=== PATIENT | male | born 1990 | race Caucasian/White ===

== ENCOUNTER 2017-12-08 20:55 | Emergency (ER) | payer OTHER, SELFPAY ==
[2017-12-08 20:55] VITALS: BP 131/79; PULSE 74; RESP 17; TEMP 36.7; O2SAT 98; BMI 22.1
--- NOTE | 2017-12-08 21:10 | NURSING ---
CALLED DEREJE FROM [facility], SHE WILL BE IN TO DRUG TEST
--- NOTE | 2017-12-08 21:40 | RAD_ITS ---
STUDY: X-RAY - LEFT HAND REASON FOR EXAM: Male, 27 years old. Trauma. TECHNIQUE: 3 view(s) of the hand. COMPARISON: None. FINDINGS: Normal radiocarpal articulation. Normal distal radioulnar joint. Normal visualized carpal bones. Normal carpal articulations Normal carpometacarpal articulation of the thumb. Normal second through fifth carpometacarpal joints. Normal metacarpi. Normal metacarpophalangeal joint of the thumb. Normal interphalangeal joint of the thumb. Normal proximal and distal phalanges of the thumb. Normal metacarpophalangeal joints of the second through fifth fingers. Normal proximal and distal interphalangeal joints of the second through fifth fingers. Normal phalanges of the second through fifth fingers. The soft tissue structures are unremarkable. RAD/Hand Min 3 Views IMPRESSION: Normal x-ray examination of the hand. Electronically Signed: Parag Browne MD at 22:07 EST , Service support ,
[2017-12-08] MEDS: Naproxen 500 MG Tablet PO (22:04)
--- NOTE | 2017-12-08 22:26 | ED.DCSUM_ITS ---
- ER Visit Summary Date of Service: 12/08/17 Chief Complaint: Left hand injury History of Present Illness: The patient is a 27 M he was at work tonight when he states his left fifth finger was smashed between a 300 pound roll and the floor. He is not wearing gloves at the time. He is right-hand dominant. Physical Examination: Vital signs are unremarkable. Left upper extremity examination reveals tenderness of the distal aspect of the left fifth finger. There is a small amount of dried blood along the ulnar surface of the nail. There is no subungual hematoma. The nail itself is stable and intact. Patient has good range of motion, sensation, and cap refill. Test Results: Left hand x-rays were obtained per nursing protocol. There is no evidence of acute fracture. Emergency Department Course and Treatment: Patient was given Naprosyn for pain. Finger placed in AlumaFoam splint help protect it from further injury. Treatment Plan: [] Disposition: Discharge Impression: Crush injury left fifth finger This note was generated with [employer] dictation software. It may contain incorrect words, spelling, and punctuation that were not noted in review of the chart prior to signing ED Disposition - Plan for ED Patient: Disposition: Home or Assisted Living Chief Complaint: Upper Extremity Injury Instructions: ED Crush Injury Finger No Fx Referrals: [facility] [GROUP OF PHYSICIANS] - 3-5 Days
[2017-12-08 22:59] VITALS: BP 125/78; PULSE 75; RESP 14; O2SAT 99
== END 2017-12-08 22:59 | disposition home or self-care (01) ==
PROVIDERS: Emergency Provider Emergency Medicine
DX: S67.197A Crushing injury of left little finger, initial encounter (principal); W23.1XXA Caught, crushed, jammed, or pinched between stationary objects, initial encounter; Y93.9 Activity, unspecified; Y92.9 Unspecified place or not applicable; Y99.0 Civilian activity done for income or pay; Z72.0 Tobacco use
CPT/HCPCS: 73130; 99284

== ENCOUNTER 2018-01-07 18:33 | Emergency (ER) | payer BC, SELFPAY ==
[2018-01-07 18:33] VITALS: BP 153/93; PULSE 90; RESP 16; TEMP 36.6; O2SAT 98; BMI 21.4
[2018-01-07 19:09] VITALS: BP 148/96; PULSE 80; RESP 14; O2SAT 99
--- NOTE | 2018-01-07 19:41 | CT_ITS ---
STUDY: CTA CHEST REASON FOR EXAM: Male, 27 years old. Hemoptysis, left rib pain and dyspnea RADIATION DOSAGE (If Supplied By Facility): CTDIvol = ( 10.76 ) mGy, DLP = ( 321.82 ) mGycm TECHNIQUE: The examination was performed with the intravenous administration of 75ML ml of Isovue 370 contrast material. Post-processing of the angiographic images was performed, with multiplanar reformation and 3D reconstruction. Individualized dose optimization techniques were used for this CT. COMPARISON: None. FINDINGS: Normal enhancement of the main pulmonary artery and right and left pulmonary arteries. Normal enhancement of the bilateral peripheral pulmonary arteries. There is no demonstrated pulmonary embolism. Normal thoracic aorta and visualized great vessels. There is no demonstrated aortic dissection. Normal heart and pericardium. Normal mediastinum. Normal hilar regions. Normal visualized trachea and bronchi. The lungs are well expanded. Normal pulmonary parenchyma. Normal pleura. Normal chest wall structures. Normal osseous structures. Normal visualized upper abdomen. CT/CTA Chest W/WO Contrast IMPRESSION: Normal CTA chest examination, without a demonstrated pulmonary embolism or arterial dissection. Electronically Signed: Dony Farrell MD at 21:00 EDT , Service support ,
[2018-01-07 20:01] LABS: Absolute Lymphocyte Count 2.09 X10^3/ul (0.83-4.51); Absolute Neutrophil Count 4.5 X10^3/uL (2.0-7.7); Basophil# 0.02 X10^3/uL; Basophil% 0.3 % (0-1); Eosinophil# 0.14 X10^3/uL; Eosinophils% 1.9 % (0-5); Hemoglobin 16.3 g/dl (13.0-16.5); Lymphocyte # 2.09 X10^3/ul (4.0); Lymphocyte % 28.2 % (19-41); Mean Corpuscular Hgb 28.3 pg (27.0-32.0); Mean Corpuscular Volume 83.3 fL (80-94); Mean Platelet Vol. 10.5 fl (6.2-12.0); Monocyte# 0.63 X10^3/uL; Monocyte% 8.5 % (0-10); Neutrophil # 4.51 X10^3/uL (2.7-7.7); Neutrophil % 60.8 % (47-70); Platelet Count 236 K/mm3 (150-450); RBC Distribution Width CV 13.3 % (11.6-14.6); RBC Distribution Width SD 39.8 fl (35.1-43.9); Red Blood Count 5.76 M/mm3 (4.6-6.2); White Blood Count 7.4 K/mm3 (4.4-11.0)
[2018-01-07 20:12] LABS: POSITIVE COUNT NO; POSITIVE DIFFERENTIAL NO; POSITIVE MORPHOLOGY NO
[2018-01-07 20:13] LABS: Anion Gap 6 (5-15); BUN 6 mg/dL (7-18); BUN/Creat Ratio 6.1 RATIO (10-20); Chloride 108 mmol/L (98-107); Creatinine, Serum 0.98 mg/dL (0.70-1.30); EST Glomerular Filtration Rate 98 mL/min (>60); Est Glom Filt Rate - Afr Amer 118 mL/min (>60); Estimated Creatinine Clearance 106.63 ml/min; Glucose 89 mg/dL (74-106); Potassium 4.4 mmol/L (3.5-5.1); Sodium Level 142 mmol/L (136-145)
--- NOTE | 2018-01-07 21:30 | ED.VISSUMM ---
- ER Visit Summary Date of Service: 01/07/18 Chief Complaint: Coughing up blood History of Present Illness: The patient is a 27 M presenting for evaluation secondary to hemoptysis. Patient states that over the last 2 days he has been intermittently coughing up blood. States that he has had a cough and a mild sore throat denies any runny nose nosebleeds nausea or vomiting or any bloody emesis. Patient states that it has happen a couple of times one time it was enough to actually fill his mouth with blood. Patient is a smoker. He also endorses that potentially has been having some left leg swelling recently. Denies any history DVT or PE. No fevers chills night sweats unintended weight loss or personal history of cancer. Review of systems otherwise negative. Physical Examination: Vital signs are within normal limits, patient is afebrile. General: Patient is thin set, well-developed and in no acute distress. Head: Normocephalic, atraumatic Eyes: Pupils equal round and reactive bilaterally, extra occular motion intact bialterally ENT: Moist mucous membranes Neck: Supple, no lymphadenopathy, no JVD, no meningismus CVS: Heart regular rate and rhythm, no murmurs, rubs or gallops, radial pulses 2+ bilaterally Resp: Respirations nondistressed, lung sounds clear bilaterally Abdomen: Soft, nontender, nondistended, no palpable masses, normal bowel sounds Back: Nontender Extremities: Nontender, atraumatic, active full range of motion, no peripheral edema Skin: warm, no rashes, no petechia Neuro: Alert and oriented x 4, CN 2-12 intact, no lateralizing neurological defecits Psyc: Normal affect Test Results: CBC, chemistry unremarkable. CT angiogram of the chest unremarkable. Emergency Department Course and Treatment: Patient presented secondary to hemoptysis. He had a negative chest x-ray at the urgent care. Blood work and CT angiogram were therefore performed which were found to be unremarkable. Patient is a heavy smoker, there is still the possibility that he has a squamous cell carcinoma that could be causing this versus an element of bronchitis. Patient was recommended on signs and symptoms for which to return and was instructed that he needs to follow-up with pulmonology as he may require bronchoscopy to ensure that this is not cancer. He did voice understanding. Disposition: Discharge Impression: 1. Hemoptysis 2. Tobacco use This note was generated with [employer] dictation software. It may contain incorrect words, spelling, and punctuation that were not noted in review of the chart prior to signing ED Disposition - Plan for ED Patient: Disposition: Home or Assisted Living Chief Complaint: Cough Diagnosis: Hemoptysis Instructions: ED Hemoptysis Referrals: Montez Mcdonald DO [STAFF PHYSICIAN] - As soon as possible
[2018-01-07 21:46] VITALS: BP 121/78; PULSE 88; RESP 17; O2SAT 98
--- NOTE | 2018-01-07 21:47 | ED.RN ---
IV DC'ED, CATHETER INTACT, SMALL GAUZE DRESSING PLACED. DISCHARGE INSTRUCTIONS GIVEN TO AND REVIEWED WITH PATIENT, PATIENT DENIES QUESTIONS OR CONCERNS AND VOICES UNDERSTANDING OF DISCHARGE INSTRUCTIONS. PT AMBULATES OUT OF ROOM WITHOUT DIFFICULTY.
== END 2018-01-07 21:48 | disposition home or self-care (01) ==
PROVIDERS: Emergency Provider Emergency Medicine
DX: R04.2 Hemoptysis (principal); F17.200 Nicotine dependence, unspecified, uncomplicated
CPT/HCPCS: 71275; 80048; 85025; 99283; Q9967; A4216

== ENCOUNTER 2018-02-23 15:04 | Emergency (ER) | payer BC, SELFPAY ==
[2018-02-23 15:05] VITALS: BP 103/91; PULSE 110; RESP 17; TEMP 36.9; O2SAT 96; BMI 20.4
--- NOTE | 2018-02-23 15:21 | ED.DEP ---
ED Disposition - Plan for ED Patient: Chief Complaint: Cellulitis Instructions: Discharge Instructions for Cellulitis Prescriptions: Clindamycin [Cleocin] 300 mg PO 4X/DAY #80 capsule Referrals: Care Physician,No Primary [Primary Care Provider] - Jason Rebolledo MD [STAFF PHYSICIAN] -
--- NOTE | 2018-02-23 15:25 | ED.VISSUMM ---
- ER Visit Summary Date of Service: 02/23/18 Chief Complaint: Right thigh redness History of Present Illness: The patient is a 27 M presenting with redness around a recent tattoo on his right thigh. Patient states last Friday his friend gave him a tattoo on his right thigh. He states sterile equipment was used. 1-2 days later he had increasing redness. He states he has had drainage at home. Denies fever. He has had other tattoos without infection. Denies other complaints. Physical Examination: Vitals are stable. Patient is afebrile. Alert no acute distress. HEENT exam is unremarkable. Neck is supple. Lungs are clear and equal bilaterally. Heart is regular rate and rhythm. Extremities right anterior thigh mild erythema surrounding recent tattoo. No circumferential redness. No swelling or drainage. NVID. Skin is warm and dry. No focal neurologic deficit. Remainder of exam is unremarkable. Emergency Department Course and Treatment: Patient is given clindamycin. He is advised to watch closely for worsening infection. Advised to follow-up with Dr. Rebolledo lead electrical controls engineer for no doc. Advised return ED if worsening complaints. Disposition: Discharge home Impression: Right thigh cellulitis This note was generated with [employer] dictation software. It may contain incorrect words, spelling, and punctuation that were not noted in review of the chart prior to signing ED Disposition - Plan for ED Patient: Chief Complaint: Cellulitis Instructions: Discharge Instructions for Cellulitis Prescriptions: Clindamycin [Cleocin] 300 mg PO 4X/DAY #80 capsule Referrals: Jasno Rebolledo MD [STAFF PHYSICIAN] - Care Physician,No Primary [Primary Care Provider] -
--- NOTE | 2018-02-23 15:28 | ED.DCSUM_ITS ---
- ER Visit Summary Date of Service: 02/23/18 Chief Complaint: Right thigh redness History of Present Illness: The patient is a 27 M presenting with redness around a recent tattoo on his right thigh. Patient states last Friday his friend gave him a tattoo on his right thigh. He states sterile equipment was used. 1-2 days later he had increasing redness. He states he has had drainage at home. Denies fever. He has had other tattoos without infection. Denies other complaints. Physical Examination: Vitals are stable. Patient is afebrile. Alert no acute distress. HEENT exam is unremarkable. Neck is supple. Lungs are clear and equal bilaterally. Heart is regular rate and rhythm. Extremities right anterior thigh mild erythema surrounding recent tattoo. No circumferential redness. No swelling or drainage. NVID. Skin is warm and dry. No focal neurologic deficit. Remainder of exam is unremarkable. Emergency Department Course and Treatment: Patient is given clindamycin. He is advised to watch closely for worsening infection. Advised to follow-up with Dr. Rebolledo transplant nurse practitioner for no doc. Advised return ED if worsening complaints. Disposition: Discharge home Impression: Right thigh cellulitis This note was generated with [employer] dictation software. It may contain incorrect words, spelling, and punctuation that were not noted in review of the chart prior to signing ED Disposition - Plan for ED Patient: Chief Complaint: Cellulitis Instructions: Discharge Instructions for Cellulitis Prescriptions: Clindamycin [Cleocin] 300 mg PO 4X/DAY #80 capsule Referrals: Jason Rebolledo MD [STAFF PHYSICIAN] - Care Physician,No Primary [Primary Care Provider] -
[2018-02-23] MEDS: Clindamycin HCl 150 MG Capsule 450 MG PO (15:29)
[2018-02-23 15:32] VITALS: BP 105/89; PULSE 97; RESP 16; O2SAT 99
== END 2018-02-23 15:52 | disposition home or self-care (01) ==
PROVIDERS: Emergency Provider Emergency Medicine
DX: L03.115 Cellulitis of right lower limb (principal); Z72.0 Tobacco use
CPT/HCPCS: 99283

== ENCOUNTER 2018-06-03 10:15 | Emergency (ER) | payer SELFPAY ==
[2018-06-03 10:17] VITALS: BP 132/73; PULSE 78; RESP 18; TEMP 36.8; O2SAT 98; BMI 22.2
--- NOTE | 2018-06-03 10:30 | CT_ITS ---
STUDY: CT ABDOMEN AND PELVIS WITH CONTRAST REASON FOR EXAM: Male, 27 years old. Right lower quadrant pain since last week RADIATION DOSAGE (If Supplied By Facility): CTDIvol = ( 12.67 ) mGy, DLP = ( 610.38 ) mGycm TECHNIQUE: Transaxial images were obtained from the dome of the diaphragm to the symphysis pubis with oral contrast. 100mL ml of Isovue 300 contrast was administered. Sagittal and coronal images were reconstructed. Individualized dose optimization techniques were used for this CT. COMPARISON: None. FINDINGS: The visualized lung bases are unremarkable. The visualized portions of the heart are within normal limits. Normal liver. Normal gallbladder and extrahepatic biliary system. Normal spleen. Normal pancreas. Normal bilateral adrenal glands. Normal right kidney. Normal left kidney. Normal visualized stomach. Normal small intestine. Normal colon. The appendix is visualized and appears normal. Normal abdominal aorta. Normal inferior vena cava. Normal retroperitoneum. There is circumferential wall thickening of the urinary bladder. Normal abdominal wall. Normal osseous structures. CT/Abdomen/Pelvis WITH Contrast IMPRESSION: 1. Circumferential wall thickening of the urinary bladder suggesting inner tract infection/cystitis. Correlation with urinalysis is suggested. 2. Normal CT appearance of the appendix. Electronically Signed: Man Mosqueda MD at 12:50 EDT , Service support ,
--- NOTE | 2018-06-03 10:31 | ED.VISSUMM ---
- ER Visit Summary Date of Service: 06/03/18 Chief Complaint: Abdominal pain History of Present Illness: The patient is a 27 M who presents with abdominal pain, nausea, vomiting and diarrhea. He has had the symptoms for 1 week. He describes sharp pain in his right lower quadrant. He states he went to an urgent care last week and I told him that he may have appendicitis and told him to come to the emergency department. They gave him Keflex however he did not come to the ER. He states his pain got better but not completely resolved. He got worse today. He had 3 episodes of vomiting today. He is also been having some diarrhea. No urinary symptoms. He has no history of any abdominal surgeries in the past. He has had low-grade temperatures last week but a normal temperature today. He tried Tylenol without any relief. Physical Examination: Vital signs reviewed. HEENT exam unremarkable. Heart is regular rate and rhythm without murmurs. Lungs are clear to auscultation. Abdomen is soft with right lower quadrant tenderness to palpation. No guarding or rebound tenderness. Extremities reveal no edema. Skin exam normal. Neurologic exam normal. Test Results: Labs are unremarkable except for total bilirubin 1.1. Urinalysis negative. CAT scan of the abdomen and pelvis reveals bladder wall thickening. Emergency Department Course and Treatment: Patient was treated with morphine and Zofran which helped his symptoms. His labs look normal. The CAT scan states that the bladder wall is thickened and it could correlate with infection. However, his urinalysis was negative. Patient was recently on a course of Keflex. He states that the urgent care gave him this for his appendicitis. However I do not think antibiotics would have treated his appendicitis acutely. He may have had a UTI which is why they are seen the bladder wall thickening. Patient will be discharged with Bentyl and will follow up with his PCP. Treatment Plan: [] Disposition: Discharge Impression: Abdominal pain This note was generated with [employer] dictation software. It may contain incorrect words, spelling, and punctuation that were not noted in review of the chart prior to signing ED Disposition - Plan for ED Patient: Chief Complaint: Abd Pain Referrals: Care Physician,No Primary [Primary Care Provider] -
[2018-06-03 10:53] LABS: Absolute Lymphocyte Count 1.67 X10^3/ul (0.83-4.51); Absolute Neutrophil Count 4.1 X10^3/uL (2.0-7.7); Basophil# 0.02 X10^3/uL; Basophil% 0.3 % (0-1); Eosinophil# 0.21 X10^3/uL; Eosinophils% 3.1 % (0-5); Hematocrit 45.9 % (40-54); Lymphocyte # 1.67 X10^3/ul (4.0); Lymphocyte % 24.4 % (19-41); Mean Corp Hgb Conc 34.9 g/gl (32-36); Mean Corpuscular Volume 83.3 fL (80-94); Monocyte# 0.82 X10^3/uL; Neutrophil # 4.11 X10^3/uL (2.7-7.7); Neutrophil % 60.1 % (47-70); Platelet Count 219 K/mm3 (150-450); RBC Distribution Width CV 12.9 % (11.6-14.6); RBC Distribution Width SD 39.1 fl (35.1-43.9); Red Blood Count 5.51 M/mm3 (4.6-6.2); White Blood Count 6.8 K/mm3 (4.4-11.0)
[2018-06-03 10:56] LABS: POSITIVE COUNT NO; POSITIVE DIFFERENTIAL NO; POSITIVE MORPHOLOGY NO
[2018-06-03 11:06] LABS: ALB/GLOB Ratio 1.1 RATIO (0.9-2.4); AST(SGOT) 24 U/L (15-37); Alanine Aminotransfer ALT/SGPT 36 U/L (16-61); Alkaline Phosphatase 56 U/L (45-117); Anion Gap 6 (5-15); BUN 15 mg/dL (7-18); BUN/Creat Ratio 13.4 RATIO (10-20); Calcium,Total 9.1 mg/dL (8.5-10.1); Chloride 105 mmol/L (98-107); Creatinine, Serum 1.12 mg/dL (0.70-1.30); EST Glomerular Filtration Rate 84 mL/min (>60); Est Glom Filt Rate - Afr Amer 101 mL/min (>60); Globulin 3.5 g/dL (2.2-4.2); Glucose 86 mg/dL (74-106); Lipase 133 U/L (73-393); Potassium 4.3 mmol/L (3.5-5.1); Protein, Total 7.5 g/dL (6.4-8.2); Sodium Level 140 mmol/L (136-145)
[2018-06-03] MEDS: Ondansetron 4 MG/2 ML Vial IV (11:19)
[2018-06-03] MEDS: 0.9% Normal Saline 1,000 ML 1000 ML IV (11:19)
[2018-06-03] MEDS: Morphine 4 MG/ML Syringe IV (11:19)
[2018-06-03 12:41] VITALS: BP 130/72; PULSE 75; RESP 14; O2SAT 99
[2018-06-03 14:06] LABS: Bacteria 0 SEEN /hpf (None Seen); Mucous, Urine 0 SEEN /hpf (<or=2+); Red Blood Cells-Urine 0 SEEN /hpf (0-5); Squamous Epithelial Cells - UA 0 SEEN /hpf (0-5); White Blood Cells 0 SEEN /hpf (0-5)
[2018-06-03 14:08] LABS: Color, Urine Yellow (Yellow); Glucose, Dipstick Normal (Normal); Ketone-Dipstick Negative (Negative); Leukocyte Esterase-Dipstick Negative /ul (Negative); Nitrite-Dipstick Negative (Negative); Occult Blood-Urine Negative /ul (Negative); Protein-Dipstick Negative (Negative); Specific Gravity, Urine 1.015 (1.002-1.030); Urine Bilirubin Dipstick Negative (Negative); Urine Clarity Clear (Clear); Urine Urobilinogen Normal (Normal)
[2018-06-03 14:17] VITALS: BP 122/70; PULSE 68; RESP 14; O2SAT 99
--- NOTE | 2018-06-03 14:26 | ED.DEP ---
ED Disposition - Plan for ED Patient: Disposition: Home or Assisted Living Chief Complaint: Abd Pain Instructions: ED Abdominal Pain Unkn Cause Prescriptions: Dicyclomine HCl [Bentyl] 20 mg PO TIDAC #20 cap Referrals: Care Physician,No Primary [Primary Care Provider] -
[2018-06-03 14:37] VITALS: BP 120/74; PULSE 80; RESP 14; O2SAT 98
== END 2018-06-03 14:40 | disposition home or self-care (01) ==
PROVIDERS: Emergency Provider Emergency Medicine
DX: R10.31 Right lower quadrant pain (principal); Z72.0 Tobacco use
CPT/HCPCS: 74177; 80053; 81001; 83690; 85025; 96361; 96374; 96375; 99283; J7030; Q9967; A4216; J2405

== ENCOUNTER 2019-08-03 10:06 | Emergency (ER) | payer SELFPAY ==
[2019-08-03 10:06] VITALS: BP 152/97; PULSE 91; RESP 16; TEMP 36.5; O2SAT 99; BMI 20.9
--- NOTE | 2019-08-03 10:13 | ED.VIS.DENTA ---
History of Present Illness Chief Complaint: Dental Informant: Patient Onset: Yesterday Context: Sudden Onset Timing: Continuous Quality: Pain Location: Upper right molars Current Severity: Severe Maximum Severity: Severe Worsened by: Cold liquids Relieved by: - - Nothing Associated Symptoms: Hot, - - Patient denies fever, facial swelling, facial rash or difficulty opening or closing his mouth. Narrative: Patient is 28-year-old male presents with acute upper right dental pain that started 2 days ago. He was seen at urgent care and placed on amoxicillin. He was not prescribed any pain medicine. He has an appointment see dentist next week. He denies fever, chills night sweats. He denies difficulty opening or closing his mouth. He denies difficulty swallowing or breathing. He denies change in voice. He denies facial swelling or redness. He denies history rheumatic fever, murmur, SBE, IV drug use or being immune suppressed. He denies allergies to medication. Prior similar symptoms: Yes Recent Illness/Hospitalization: Yes - Past Medical History (1) No significant past medical history Status: Acute Past Medical History - Allergies and Home Meds Allergies/Adverse Reactions: Allergies No Known Allergies Allergy (Verified 08/03/19 10:08) Primary Care Physician: Care Physician,No Primary [Primary Care Provider] - Prior records reviewed: Yes Past Medical History: None Surgical History: no surgical history Lives: With Family Smoking Status: Current every day smoker Alcohol: Rare Drugs: None Review of Systems General: Denies: Chills, Fever, Malaise, Subjective, Sweats, Weight loss, - Eyes: Denies: Visual changes - bilaterally, Blurred Vision - bilaterally, Diplopia ENT: Denies: Bilateral ear pain, Rhinorrhea, Sore throat Cardiovascular: Denies: Chest pain, Palpitations, Heart racing Respiratory: Denies: Dyspnea, Cough, Dyspnea on exertion Gastrointestinal: Denies: Nausea, Vomiting Musculoskeletal: Denies: Myalgias, Arthralgias, Neck pain Skin: Denies: Rash Hematologic: Denies: Easy bruising, Easy bleeding Allergy: Denies: Uticaria, Swelling of the mouth, Swelling of the tongue Physical Exam Vital Signs/Narrative: Vital Signs Temp Pulse Resp BP Pulse Ox 08/03/19 10:06 97.7 F L 91 16 152/97 H 99 Inital Vital Signs reviewed: Yes General: Well nourished, Well developed Head: Normocephalic, Atraumatic ENT: Moist mucous membranes, Nasal congestion, No nasal trauma, No rhinorrhea, TM's clear. Negative for: Sinus tenderness Mouth/Throat: Normal oral mucosa, Normal posterior oropharynx, No sublingual edema, Normal Stensen's duct, Apthous ulcer, Dental abscess, Gingivitis, Tenderness on tooth percussion, Widespread dental decay. Negative for: Normal inspection lips/gums, No dental tenderness, Dental trauma, Trismus Neck: Supple, No lymphadenopathy, Nontender, No JVD, - - Trachea is midline. There is no stridor. There is no carotid bruit.. Negative for: Anterior submandibular lymphadenopathy, Posterior submandibular lymphadenopathy, Anterior submental lymphadenopathy, Posterior submental lymphadenopathy, Soft tissue swelling, Submandibular soft tissue swelling, Submental soft tissue swelling, Parotid tenderness Cardiovascular: Regular rate, Regular rhythm, No murmurs, Normal S1, Normal S2 Respiratory: No distress, CTA bilaterally, Chest nontender Skin: Normal color, No rash, No Trauma. Negative for: Cyanosis, Diaphoresis, Jaundice Neurological: Alert, Oriented x3, Cranial nerves II-XII grossly intact, Normal Strength, Normal Sensation Psychological: Normal affect Diagnostic/Tx/Re-eval - Medical Decision Making With extensive dental decay. The right upper molar, tooth #1 has an abscess. Tooth #2 is eroded to the gumline with inflammation of the gum and swelling. There is no fluctuance. He has extensive dental decay with exposure of pulp involving many teeth. Since there is no evidence of Garret's angina, facial cellulitis patient was instructed to continue taking amoxicillin and was prescribed pain medicine. ED Disposition - Plan for ED Patient: Disposition: Home or Assisted Living Diagnosis: Dental abscess, Dental caries extending into pulp Instructions: Dental Abscess Prescriptions: Naproxen [Naprosyn] 500 mg PO BID #14 tablet Hydrocodone Bitart/Apap 5-325 [[place] 5MG-325MG] 1 tablet PO Q6H PRN PRN 3 Days #10 tablet PRN Reason: Pain Referrals: Care Physician,No Primary [Primary Care Provider] -
[2019-08-03] MEDS: Naproxen 250 MG Tablet 500 MG PO (10:30)
[2019-08-03] MEDS: HYDROcodone Bitartrate/Apap 5/325 Tablet PO (10:30)
[2019-08-03 10:33] VITALS: RESP 17
== END 2019-08-03 10:33 | disposition home or self-care (01) ==
PROVIDERS: Emergency Provider Emergency Medicine
DX: K04.7 Periapical abscess without sinus (principal); K02.63 Dental caries on smooth surface penetrating into pulp; F17.200 Nicotine dependence, unspecified, uncomplicated
CPT/HCPCS: 99283